=== PATIENT | male | born 1955 | race Caucasian/White ===

== ENCOUNTER 2016-08-25 21:55 | Emergency (ER) | payer MEDICAID ==
[~2016-08-25] VITALS: Ht 172.7 cm; Wt 107.0 kg
[2016-08-25 22:00] VITALS: BP 186/97; PULSE 85; RESP 18; TEMP 98.4; O2SAT 99
[2016-08-25 22:57] LABS: BASOPHILS # (AUTO) 0.1 K/uL (0.0-0.2); BASOPHILS % (AUTO) 1.3 % (0.0-2.0); EOSINOPHILS # (AUTO) 0.3 K/uL (0.0-0.4); EOSINOPHILS % (AUTO) 3.6 % (0.0-4.0); HEMATOCRIT 48.4 % (36-54); HEMOGLOBIN 16.4 g/dL (14.0-18.0); MEAN CORPUSCULAR HEMOGLOBIN 30 pg (27-31); MEAN CORPUSCULAR HGB CONC 34 % (32-36); MEAN CORPUSCULAR VOLUME 89 fL (79.0-98.0); MONOCYTES # (AUTO) 0.6 K/uL (0.0-1.0); MONOCYTES % (AUTO) 7.3 % (1.7-9.3); NEUTROPHILS # (AUTO) 4.6 K/uL (1.8-7.7); NEUTROPHILS % (AUTO) 60.8 % (40.0-70.0); PLATELET COUNT (AUTO) 212 K/uL (130-430); RED BLOOD CELL COUNT(AUTO) 5.45 MIL/uL (4.2-6.2); RED CELL DISTRIBUTION WIDTH 12.2 % (9.0-15.0); WHITE BLOOD COUNT (AUTO) 7.6 K/uL (4.8-10.8)
[2016-08-25 23:06] LABS: CREATININE 1.02 mg/dL (0.55-1.30)
[2016-08-25 23:11] LABS: ALBUMIN 4.2 g/dL (3.4-4.8); TOTAL BILIRUBIN 0.5 mg/dL (0.0-1.0); TOTAL PROTEIN, SERUM 8.3 g/dL (6.4-8.3)
[2016-08-25 23:15] LABS: POTASSIUM 2.9 mmol/L (3.5-5.1)
[2016-08-25] MEDS ORDERED: POTASSIUM CHLORIDE 20 MEQ TAB.PRT.SR PO ONE ×2 (23:15→23:45)
[2016-08-26 00:30] VITALS: BP 140/97; PULSE 85; RESP 18; TEMP 98.4; O2SAT 99
== END 2016-08-26 00:30 | disposition home or self-care (01) ==
LOC: SED 21:55
DX: I10 Essential (primary) hypertension (principal); R20.0 Anesthesia of skin; H61.893 Other specified disorders of external ear, bilateral
CPT/HCPCS: 36415; 71010; 80053; 84484; 85025; 93005; 99285

== ENCOUNTER 2022-04-16 22:26 | Emergency (ER) | payer MEDICAID, OTHER ==
[~2022-04-16] VITALS: Ht 172.7 cm; Wt 97.5 kg
[2022-04-16 22:35] VITALS: BP_SYST 160
--- NOTE | 2022-04-16 23:05 | NUR ---
PT HERE BIB BLS TRANSPORT C/O MAAME EYA PAIN AND GENERALIZED BURNING SENSATION AND REDNESS AFTER BEING SPRAYED WITH BEAR SPRAY AT HIS WORK PLACE. PT DENIES SOB AT THIS TIME. PER PT HIS EYES WHERE BURNING PMH:HTN PT AAOX4 AT THIS TIME, NO SOB NOTED AND IMMEDIATELY TAKEN TO SHOWER ROOM.
[2022-04-17] MEDS ORDERED: ACETAMINOPHEN 500 MG TABLET PO ONE (00:30)
--- NOTE | 2022-04-17 00:31 | NUR ---
DC PT HOME AAOX4, NO SOB NOTED AND NOT IN ANY DISTRESS. DC INSTRUCTION WERE GIVEN TO PT, AND HE VERBALZIED UNDERSTANDING
== END 2022-04-17 00:30 | disposition home or self-care (01) ==
LOC: SED 22:26
DX: Z77.098 Contact with and (suspected) exposure to other hazardous, chiefly nonmedicinal, chemicals (principal); I10 Essential (primary) hypertension; Z79.899 Other long term (current) drug therapy
CPT/HCPCS: 99283